=== PATIENT | male | born 1965 | race African-American/Black ===

== ENCOUNTER 2017-08-29 13:05 | Emergency (ER) | payer MEDICAID | END 2017-08-29 17:15 | disposition home or self-care (01) | LOC: D.ER 13:05 | DX: G40.909 Epilepsy, unspecified, not intractable, without status epilepticus (principal) ==

== ENCOUNTER 2018-05-30 13:54 | Emergency (ER) | payer MEDICAID ==
[~2018-05-30] VITALS: Ht 185.4 cm; Wt 75.0 kg
[2018-05-30 13:56] VITALS: Ht 185.4 cm; Wt 75.0 kg
[2018-05-30] MEDS ORDERED: DILANTIN100 MG PO ×2 (13:58→15:26)
[2018-05-30 15:39] VITALS: BP 130/75
== END 2018-05-30 15:52 | disposition home or self-care (01) ==
LOC: D.ER 13:54
DX: G40.909 Epilepsy, unspecified, not intractable, without status epilepticus (principal); Z76.0 Encounter for issue of repeat prescription